=== PATIENT | female | born 1945 ===

== ENCOUNTER 2023-01-30 14:14 | Emergency (ER) | payer MEDICARE, SELFPAY ==
[2023-01-30 14:25] VITALS: BP 119/58; PULSE 82; RESP 16; TEMP 37.1; O2SAT 100; BMI 19.8
[2023-01-30 16:51] VITALS: BP 110/55; PULSE 70; RESP 18; O2SAT 94
--- NOTE | 2023-01-30 17:13 | ED.EXTPRO ---
HPI - Extremity Problem General Chief complaint: Extremity Problem,Nontraumatic Stated complaint: post lt foot surgery/thinks infected Time Seen by Provider: 01/30/23 17:10 Source: patient Mode of arrival: Ambulatory Limitations: no limitations History of Present Illness HPI Narrative: Patient is a 77-year-old female who 2 months ago underwent a revision surgery to a cross toe surgery that she had several years ago. There was no new hardware placed. She states over the past couple days she is noticed some redness on the top of her foot. She also thinks that there is a stitch that is coming out as well. Related Data Previous Rx's Medication Instructions Recorded cephalexin 500 mg capsule 500 mg PO QID 5 days #20 caps 01/30/23 Allergies Allergy/AdvReac Type Severity Reaction Status Date / Time erythromycin base AdvReac Verified 01/30/23 14:27 Sulfa (Sulfonamide AdvReac Verified 01/30/23 14:27 Antibiotics) Review of Systems Musculoskeletal Musculoskeletal: Reports system reviewed and no additional complaints, except as documented Integumentary/Breasts Skin/Breast: Reports system reviewed and no additional complaints, except as documented Exam Initial Vital Signs Initial Vital Signs: Vital Signs Temperature 98.7 F 01/30/23 14:25 Pulse Rate 82 01/30/23 14:25 Respiratory Rate 16 01/30/23 14:25 Blood Pressure 119/58 L 01/30/23 14:25 Pulse Oximetry 100 01/30/23 14:25 Oxygen Delivery Method Room Air 01/30/23 14:25 Skin Other: Patient has a 2 cm area of redness on the dorsum of the left foot at the base of the 2nd toe. There does appear to be a small stitch that is coming from the area. There is no abscess. No drainage. Neuro General: patient alert, patient awake and moves all extremities Course Vital Signs Vital signs: Vital Signs - 8 hr 01/30/23 14:25 01/30/23 16:51 Temperature 98.7 F Pulse Rate 82 70 Respiratory Rate 16 18 Blood Pressure 119/58 L 110/55 L Pulse Oximetry 100 94 Oxygen Delivery Method Room Air Room Air MDM - Extremity (Nontraumatic) MDM Narrative Medical decision making narrative: Patient is nontoxic appearing. It does look like there is a small superficial infection without abscess in the dorsum of the foot. We will start the patient on antibiotics. No indication for incision and drainage. Discharge Plan Departure Patient Disposition: Home Clinical Impression: Cellulitis Instructions: DI for Cellulitis -- Adult Activity Restrictions/Additional Instructions: You can shower like normal. I do recommend that you keep the area covered and make sure that it does not rubbing up against any shoes or sandals that you are wearing. Take the antibiotics as directed. Return to the emergency department for new or worsening symptoms. Prescriptions: New cephalexin 500 mg capsule 500 mg PO QID 5 Days Qty: 20 0RF Stand Alone Forms: Patient Portal/API
[2023-01-30] MEDS: cephALEXin 250 MG CAPSULE 500 MG PO (17:20)
== END 2023-01-30 17:24 | disposition home or self-care (01) ==
PROVIDERS: Emergency Provider Emergency Medicine
DX: L03.116 Cellulitis of left lower limb (principal)
CPT/HCPCS: 99283